=== PATIENT | male | born 1950 | race Caucasian/White ===

== ENCOUNTER 2022-06-05 07:08 | Outpatient (CLI) | payer MEDICARE, BC ==
[2022-06-05 14:27] LABS: BASOPHILS % (AUTO) 0.5 %; EOSINOPHILS # (AUTO) 0.6 10^3/uL (0.0-0.7); EOSINOPHILS % (AUTO) 7.9 %; HCT - HEMATOCRIT 48.1 % (42.0-52.0); HGB - HEMOGLOBIN 15.4 g/dL (14.0-18.0); LYMPHOCYTES # (AUTO) 2.9 10^3/uL (1.5-3.5); LYMPHOCYTES % (AUTO) 37.4 %; MEAN CORPUSCULAR HEMOGLOBIN 32.7 pg (27.0-31.0); MEAN CORPUSCULAR VOLUME 102.1 fL (80.0-94.0); MEAN PLATELET VOLUME 10.5 fL (7.4-11.4); MONOCYTES # (AUTO) 0.8 10^3/uL (0.0-1.0); MONOCYTES % (AUTO) 9.9 %; NEUTROPHILS # (AUTO) 3.4 10^3/uL (1.5-6.6); NEUTROPHILS % (AUTO) 43.8 %; PLT - PLATELET COUNT 249 10^3/uL (130-450); RED BLOOD COUNT 4.71 10^6/uL (4.70-6.10); WHITE BLOOD COUNT 7.7 x10^3/uL (4.8-10.8)
[2022-06-05 15:51] LABS: ALBUMIN 4.3 g/dL (3.2-5.5); ALBUMIN/GLOBULIN RATIO 1.5 (1.0-2.2); ALKALINE PHOSPHATASE 57 IU/L (42-121); ALT ALANINE AMINOTRANSFERASE 18 IU/L (10-60); AST ASPARTATE AMINOTRANSFERASE 19 IU/L (10-42); BILIRUBIN,TOTAL 1.3 mg/dL (0.2-1.0); BUN - BLOOD UREA NITROGEN 17 mg/dL (6-20); CALCIUM 10.4 mg/dL (8.5-10.3); CARBON DIOXIDE - CO2 25 mmol/L (21-32); CHLORIDE 102 mmol/L (101-111); CHOL/HDL RATIO 2.5 (<5.0); CHOLESTEROL 160 mg/dL; GFR - MDRD 73 (>89); GLUCOSE 110 mg/dL (70-100); HDL CHOLESTEROL 65 mg/dL; POTASSIUM 4.9 mmol/L (3.5-5.0); SODIUM 138 mmol/L (135-145); TOTAL PROTEIN 7.1 g/dL (6.7-8.2); TRIGLYCERIDES 35 mg/dL
== END 2022-06-05 07:09 | disposition home or self-care (01) ==
LOC: LAB.S 07:08
PROVIDERS: ATTEND Family Medicine
DX: Z00.00 Encounter for general adult medical examination without abnormal findings (principal); I10 Essential (primary) hypertension; K21.9 Gastro-esophageal reflux disease without esophagitis; E78.2 Mixed hyperlipidemia
CPT/HCPCS: 36415; 80053; 80061; 83721; 85025

== ENCOUNTER 2023-04-27 06:13 | Emergency (ER) | payer MEDICARE, BC ==
[2023-04-27] MEDS ORDERED: SODIUM CHLORIDE 0.9% 1,000 ML IV STA (06:31)
--- NOTE | 2023-04-27 06:53 | ED Physician Documentation ---
History of Present Illness - Stated complaint Stated Complaint: L SIDE PX - Chief complaint Chief Complaint: Abd Pain - History obtained from History obtained from: Patient - Additonal information Additional information: The patient comes to the emergency department chief complaint of left lower quadrant abdominal pain that has been slowly escalating over the last 2 to 3 days. He states that he works out almost every day and that the pain began to come up after workout, but the patient states he did not do anything differently than he normally does and does not remember feeling as though he injured himself during the workout. He states he has had a little bit of diarrhea and that he did not eat anything after breakfast yesterday morning because he was afraid he might vomit. However, he does deny any actual nausea. The patient states that he has not had any fever or chills. No dysuria or hematuria. No history of diverticuli or kidney stones that he is aware of. He had a colonoscopy a couple of years ago which showed some polyps but otherwise unremarkable. The patient states he has a lot of cancer in his family and also has had malignant melanoma and prostate cancer himself, and is concerned that the pain could represent a malignant process. No other complaints at this time. PD PAST MEDICAL HISTORY - Past Medical History Past Medical History: Yes Cardiovascular: Hypertension, High cholesterol GI: GERD : Other Derm: Other Other Past Medical History: Prostate cancer, melanoma - Past Surgical History Past Surgical History: Yes HEENT: Cataracts - Present Medications Home Medications: Ambulatory Orders Medication Instructions Recorded Confirmed Atorvastatin [Lipitor] 10 mg PO DAILY 04/27/23 04/27/23 Lisinopril [Zestril] 10 mg PO DAILY 04/27/23 04/27/23 Omeprazole 40 mg PO DAILY 04/27/23 04/27/23 - Allergies Allergies/Adverse Reactions: Allergies Allergy/AdvReac Type Severity Reaction Status Date / Time No Known Drug Allergies Allergy Verified 04/27/23 06:35 - Social History Does the pt smoke?: No Smoking Status: Never smoker Does the pt drink ETOH?: Yes ETOH Use: Beer Does the pt have substance abuse?: No PD ED PE NORMAL - Vitals Vital signs reviewed: Yes - General General: Alert and oriented X 3, No acute distress, Well developed/nourished - HEENT HEENT: Atraumatic, EOMI, Moist mucous membranes - Neck Neck: Supple, no meningeal sign - Cardiac Cardiac: RRR, No murmur - Respiratory Respiratory: No respiratory distress, Clear bilaterally - Abdomen Abdomen: Soft, Non distended, Other (Moderate left lower quadrant tenderness, no rebound or guarding) - Derm Derm: Normal color, Warm and dry - Extremities Extremities: No deformity, No edema - Neuro Neuro: Alert and oriented X 3, hoop riveter 2-12 intact, Normal speech, Other (Grossly intact) - Psych Psych: Normal mood, Normal affect Results - Vitals Vitals: Vital Signs - 24 hr 04/27/23 04/27/23 06:24 06:30 Temperature 36.4 C L Heart Rate 72 72 Respiratory 16 Rate Blood Pressure 138/72 H O2 Saturation 96 95 Oxygen O2 Source Room air PD Medical Decision Making - ED course Complexity details: reviewed results, re-evaluated patient, considered differential, d/w patient, d/w family ED course: The patient declined symptomatic management in the emergency department. I ordered a CBC, ER abdominal panel, urinalysis, and IV fluids for the patient and the plan will be for him to get a CT scan of the abdomen and pelvis to further evaluate his left lower quadrant pain. He will be signed out to Dr. Saleh at change of shift, pending the above. Departure - Departure
[2023-04-27 07:06] LABS: BASOPHILS % (AUTO) 0.3 %; EOSINOPHILS # (AUTO) 0.5 10^3/uL (0.0-0.7); HCT - HEMATOCRIT 45.9 % (42.0-52.0); HGB - HEMOGLOBIN 15.1 g/dL (14.0-18.0); LYMPHOCYTES # (AUTO) 2.3 10^3/uL (1.5-3.5); LYMPHOCYTES % (AUTO) 24.7 %; MEAN CORPUSCULAR HEMOGLOBIN 32.5 pg (27.0-31.0); MEAN CORPUSCULAR HGB CONC 32.9 g/dL (32.0-36.0); MEAN CORPUSCULAR VOLUME 98.9 fL (80.0-94.0); MEAN PLATELET VOLUME 9.6 fL (7.4-11.4); MONOCYTES # (AUTO) 0.7 10^3/uL (0.0-1.0); MONOCYTES % (AUTO) 7.9 %; NEUTROPHILS # (AUTO) 5.8 10^3/uL (1.5-6.6); NEUTROPHILS % (AUTO) 61.8 %; PLT - PLATELET COUNT 223 10^3/uL (130-450); RED BLOOD COUNT 4.64 10^6/uL (4.70-6.10); RED CELL DISTRIBUTION WIDTH 12.5 % (12.0-15.0); WHITE BLOOD COUNT 9.3 x10^3/uL (4.8-10.8)
[2023-04-27 07:13] LABS: ALBUMIN 4.1 g/dL (3.2-5.5); ALBUMIN/GLOBULIN RATIO 1.5 (1.0-2.2); BILIRUBIN,TOTAL 0.7 mg/dL (0.2-1.0); CALCIUM 9.8 mg/dL (8.5-10.3); CREATININE 0.9 mg/dL (0.6-1.3); POTASSIUM 4.1 mmol/L (3.5-4.5); TOTAL PROTEIN 6.8 g/dL (6.4-8.9)
[2023-04-27 07:42] LABS: BILIRUBIN,URINE NEGATIVE (NEGATIVE); GLUCOSE, URINE (UA) NEGATIVE (NEGATIVE); KETONES,URINE (UA) NEGATIVE (NEGATIVE); LEUKOCYTE ESTERASE, URINE NEGATIVE (NEGATIVE); NITRITE,URINE NEGATIVE (NEGATIVE); OCCULT BLOOD,URINE NEGATIVE (NEGATIVE); PROTEIN,URINE NEGATIVE (NEGATIVE); UROBILINOGEN,URINE 0.2 (NORMAL) E.U./dL (NORMAL)
[2023-04-27] MEDS ORDERED: iohexoL-300 100 ML VIAL IVP ONE (07:42)
[2023-04-27 07:44] LABS: CLARITY,URINE CLEAR (CLEAR)
--- NOTE | 2023-04-27 08:12 | CT Report ---
PROCEDURE: Abdomen/Pelvis W INDICATIONS: LLQ abd pain CONTRAST: 100ml omni 300 TECHNIQUE: After the administration of intravenous contrast, a CT scan of the abdomen and pelvis was performed. Images were recorded and evaluated at appropriate window settings. Reformats: coronal and sagittal. F or radiation dose reduction, the following was used: automated exposure control, adjustment of mA and /or kV according to patient size. COMPARISON: None. FINDINGS: Image quality: Excellent. Lung bases and heart: Minimal left pleural effusion and very minimal bibasilar atelectasis. Liver: Mild diffuse hepatic steatosis. Gallbladder and biliary tree: No radiopaque stones or wall thickening. No biliary dilation. Spleen: No splenomegaly. Pancreas: No pancreatic ductal dilation. Adrenals: No adrenal nodule. Kidneys and ureters: No hydronephrosis. No renal cystic lesion which requires follow up. No solid mas s. Small nonobstructing right lower pole renal stones. Stomach, bowel and peritoneum: The wall of the distal chest upper stomach and the pylorus is thickened and edematous with inflammation in the surro unding fat and a small amount of fluid in the surrounding fat. There is a question of a possible dist al antral ulcer identified. There is diverticulosis with acute diverticulitis involving the proximal to mid descending colon. There is inflammatory change in the adjacent fat. No free air or abscess cav ity. Lymph nodes: No central or retroperitoneal adenopathy. Vessels: No infrarenal aortic aneurysm. PELVIS Reproductive organs: Unremarkable. Bladder: No abnormal wall thickening, accounting for underdistention. Pelvic lymph nodes: No pelvic adenopathy by size criteria. Bones: No aggressive osseous abnormality. Bilateral L5 pars defects, trace anterolisthesis of L5 on S 1. Other: Small bilateral fat-containing inguinal hernias. Incidental right anterior hip intramuscular l ipoma. IMPRESSION: 1. Findings highly suspicious for antral gastritis and probable antral gastric ulcer. There is inflam matory change in the immediately subjacent fat with a small amount of fluid present. At this point, n o free air is identified. 2. Acute noncomplicated diverticulitis of the proximal to mid descending colon. 3. Bilateral L5 pars defects. Comment: Recommend colonoscopy after acute symptomatology resolves to exclude underlying colonic lesi on. Reviewed by: Guero James MD on 04/27/2023 8:11 AM PST Approved by: Guero James MD on 04/27/2023 8:11 AM [facility] Station ID: [id number]
[2023-04-27] MEDS ORDERED: KETOROLAC 15 MG/ML VIAL IVP STA (08:32)
[2023-04-27 08:49] VITALS: BP 125/66; O2SAT 97
--- NOTE | 2023-04-27 09:13 | ED Physician Documentation ---
ED Addendum - Addendum Addendum: 04/27/23 09:[address] scan shows incidentally a small cyst in the kidney. There is actually a small cyst on the right side as well which is under an inch in size. 1 we looked at and discussed on the left kidney is about 6-1/2 cm so approximately 3 inches. Common recommendation would be to have it looked at again by ultrasound and 6 months to a year or so to ensure it is not increasing in size as it can cause some pains if they get big enough. I would discuss this with your primary care. Otherwise pertinent to the pain you are having today, there is some diverticulitis noticed in the descending colon. It looks inflamed in the area. Your white count/blood count is good and you have no fever etc. so probably still just inflammatory and not infected as well. We can start treating with anti-inflammatories stool softener and staying well for hydrated and see if that improves over the next couple of days. If not improving or increasing, then add antibiotics and probiotics as well. Also noted on your CT scan with some inflammation in the upper part of the stomach, likely related to your reflux. The omeprazole seems to be not reducing the acidity quite enough to keep inflammation from occurring there. I would suggest initially adding sacral fate at night before bed as a lot of refluxing occurs when you are flat during that time. I sent your prescriptions to [facility] in [place]. Follow-up with your primary care and return to the ER if you are not improving well with all the above measures or significantly worsening.
== END 2023-04-27 09:31 | disposition home or self-care (01) ==
LOC: ED 06:13
DX: K57.32 Diverticulitis of large intestine without perforation or abscess without bleeding (principal); K21.9 Gastro-esophageal reflux disease without esophagitis; K29.70 Gastritis, unspecified, without bleeding; N28.1 Cyst of kidney, acquired; I10 Essential (primary) hypertension
CPT/HCPCS: 36415; 74177; 80053; 81003; 83690; 85025; 96374; 99284; Q9967; 81001; 87086